=== PATIENT | male | born 1990 | race American Indian/Alaskan Native ===

== ENCOUNTER 2020-05-21 21:39 | Emergency (ER) | payer SELFPAY ==
[2020-05-21 22:14] VITALS: BP 113/79
--- NOTE | 2020-05-21 23:22 | Emergency Department Report ---
ED ENT HPI - General Chief complaint: Dental/Oral Stated complaint: SORE GUMS/FEVER Time Seen by Provider: 05/21/20 22:03 Source: patient Mode of arrival: Ambulatory Limitations: No Limitations - History of Present Illness Initial comments: 29-year-old [place] male presents emerged department complaining of pain to the left lower molar area for the past several days off and on and is worried about infection. Reports no known trauma to his knowledge reports no fever, chills, sweats. No odynophagia or dysphagia. No hemoptysis, no hematemesis. No neck pain MD complaint: tooth pain 1 - Area of pain and adjacent gingival swelling. Quality: dull Consistency: constant Improves with: none Worsens with: none Associated Symptoms: toothache. denies: sore throat, tinnitus, discharge from ear, rhinorrhea - Related Data Previous Rx's Medication Instructions Recorded Last Taken Type Amoxicillin [Amoxicillin TAB] 875 mg PO BID #20 tablet 05/21/20 Unknown Rx Chlorhexidine Mouthwash [Peridex] 15 ml MM BID #473 bottle 05/21/20 Unknown Rx Lidocaine Viscous 2% 5 ml MM Q3H PRN #120 udc 05/21/20 Unknown Rx Allergies Allergy/AdvReac Type Severity Reaction Status Date / Time No Known Allergies Allergy Unverified 05/21/20 22:08 ED Dental HPI - General Chief complaint: Dental/Oral Stated complaint: SORE GUMS/FEVER Time Seen by Provider: 05/21/20 22:03 Source: patient Mode of arrival: Ambulatory Limitations: No Limitations - Related Data Previous Rx's Medication Instructions Recorded Last Taken Type Amoxicillin [Amoxicillin TAB] 875 mg PO BID #20 tablet 05/21/20 Unknown Rx Chlorhexidine Mouthwash [Peridex] 15 ml MM BID #473 bottle 05/21/20 Unknown Rx Lidocaine Viscous 2% 5 ml MM Q3H PRN #120 udc 05/21/20 Unknown Rx Allergies Allergy/AdvReac Type Severity Reaction Status Date / Time No Known Allergies Allergy Unverified 05/21/20 22:08 ED Review of Systems ROS: Stated complaint: SORE GUMS/FEVER Other details as noted in HPI Comment: All other systems reviewed and negative ED Past Medical Hx - Past Medical History Previous Medical History?: No - Social History Smoking Status: Never Smoker Substance Use Type: None - Medications Home Medications: Home Medications Medication Instructions Recorded Confirmed Last Taken Type Amoxicillin [Amoxicillin TAB] 875 mg PO BID #20 tablet 05/21/20 Unknown Rx Chlorhexidine Mouthwash [Peridex] 15 ml MM BID #473 bottle 05/21/20 Unknown Rx Lidocaine Viscous 2% 5 ml MM Q3H PRN #120 udc 05/21/20 Unknown Rx ED Physical Exam - General Limitations: No Limitations General appearance: alert, in no apparent distress - Head Head exam: Present: atraumatic, normocephalic - Eye Eye exam: Present: normal appearance, PERRL, EOMI, scleral icterus - ENT ENT exam: Present: mucous membranes moist, other (Gingival irritation is noted with some impaction to the left lower molar tooth #17. Multiple areas of dental caries with with areas of significant erosion is noted throughout the dentition. Airway is patent tongue and uvula are midline no abscess is noted) - Neck Neck exam: Present: normal inspection, full ROM - Respiratory Respiratory exam: Present: normal lung sounds bilaterally, wheezes, rales, rhonchi, chest wall tenderness. Absent: respiratory distress - Cardiovascular Cardiovascular Exam: Present: regular rate, normal rhythm. Absent: systolic murmur, diastolic murmur, rubs, gallop - GI/Abdominal GI/Abdominal exam: Present: soft, normal bowel sounds. Absent: distended, tenderness, hyperactive bowel sounds, hypoactive bowel sounds, organomegaly - Rectal Rectal exam: Present: deferred. Absent: normal rectal tone, decreased rectal tone, heme (-) stool - Extremities Exam Extremities exam: Present: normal inspection - Back Exam Back exam: Present: normal inspection. Absent: CVA tenderness (R), CVA tenderness (L), muscle spasm, paraspinal tenderness, vertebral tenderness - Neurological Exam Neurological exam: Present: alert, oriented X3, CN II-XII intact, normal gait - Psychiatric Psychiatric exam: Present: normal affect, normal mood - Skin Skin exam: Present: warm, dry, intact, normal color. Absent: rash ED Course Vital Signs 05/21/20 22:02 Temperature 98.0 F Pulse Rate 68 Respiratory 18 Rate Blood Pressure 113/79 O2 Sat by Pulse 98 Oximetry Critical care attestation.: If time is entered above; I have spent that time in minutes in the direct care of this critically ill patient, excluding procedure time. ED Disposition Clinical Impression: Dentalgia, Dental caries Disposition: TO HOME OR SELFCARE Is pt being admited?: No Does the pt Need Aspirin: No Condition: Stable Instructions: Acute Pain, Adult, Preventive Dental Care, Adult Prescriptions: Amoxicillin [Amoxicillin TAB] 875 mg PO BID #20 tablet Lidocaine Viscous 2% 5 ml MM Q3H PRN #120 udc PRN Reason: Pain, Moderate (4-6) Chlorhexidine Mouthwash [Peridex] 15 ml MM BID #473 bottle Referrals: DACIA HURST MD [Primary Care Provider] - 3-5 Days [facility] [Outside] - 3-5 Days
== END 2020-05-22 00:10 | disposition home or self-care (01) ==
LOC: ED 21:39
DX: K02.9 Dental caries, unspecified (principal); Z79.899 Other long term (current) drug therapy
CPT/HCPCS: 99281